=== PATIENT | female | born 1995 | race Caucasian/White ===

== ENCOUNTER 2016-12-17 18:04 | Emergency (ER) | payer OTHER ==
[~2016-12-17] VITALS: Ht 157.5 cm; Wt 47.9 kg
[~2016-12-17 18:04] MED LIST: ALLEGRA-D 121 TABLET PO; AUGMENTIN875 MG PO; BENTYL10 MG PO; COLACE100 MG PO; ERYTHROMYC1 APPLICAT BOTH EYES; GARAMYCIN5 M1 BOTH EYES; HYDROXYZINE HCL10 MG PO; PHENERGAN-CODE120 ML PO; VICOPROFEN1 TABLET PO
[2016-12-17 18:28] LABS: HEMATOCRIT 35.4 % (36.0-46.0); MCH 27.8 PG (29.0-34.0); MCHC 33.3 G/DL (30.0-36.0); MCV 83.3 FL (83-99); MEAN PLAT.VOLUME 10.2 uM^3 (9.5-12.4); PLATELET COUNT 353 K/uL (156-360); RBC DIS.WIDTH-CV 13.2 % (11.8-14.6); RBC DIS.WIDTH-SD 39.3 % (39-53); RED BLOOD COUNT 4.25 M/uL (3.80-5.20); WHITE BLOOD COUNT 7.2 K/uL (4.1-10.2)
[2016-12-17 18:41] LABS: CHLORIDE 105 mEq/L (99-109); POTASSIUM 3.6 mEq/L (3.7-5.4); SODIUM 141 mEq/L (136-147)
[2016-12-17 18:44] LABS: GLUCOSE 99 mg/dL (70-99)
[2016-12-17 18:45] LABS: ANION GAP 9 MEQ/L (2-14); TOTAL BILIRUBIN 0.7 mg/dL (0.0-1.0)
[2016-12-17 18:47] LABS: ALKALINE PHOSPHATASE 55 IU/L (3-129); GFR ESTIMATE (CALCULATED) > 59 mL/min/
[2016-12-17 18:48] LABS: UREA NITROGEN (BUN) 14 mg/dL (9-23)
[2016-12-17 18:56] LABS: QUANTITATIVE HCG < 4.0 MIU/ML
[2016-12-17 18:58] LABS: LIPASE 15 U/L (1.0-51.0)
[2016-12-17 19:30] LABS: ADD MIUA? YES; BILIRUBIN NEGATIVE; BLOOD NEGATIVE; COLOR YELLOW ((YELLOW)); GLUCOSE (STRIP) NEGATIVE; KETONES NEGATIVE; LEUKOCYTES TRACE; NITRITE NEGATIVE; PROTEIN (STRIP) 100; SPECIFIC GRAVITY 1.031 (1.000-1.030)
[2016-12-17 19:46] LABS: BACTERIA RARE /HPF; EPITHELIAL CELLS 4+ /HPF; HYALINE CASTS 0-5 /LPF; MUCUS 4+ /LPF; RED BLOOD CELLS 0-5 /HPF (0-5); UCUL ADDED? NO; UNCLASSIFIED CASTS 0-5 /LPF
[2016-12-17] MEDS ORDERED: ZOFRAN ODT4 MG PO (20:20)
[2016-12-17] MEDS ORDERED: BENTYL20 MG PO (20:20)
[2016-12-17] MEDS ORDERED: MACROBID100 MG PO (20:24)
[2016-12-17 21:00] VITALS: BP 110/64
== END 2016-12-17 21:02 | disposition home or self-care (01) ==
LOC: EME 18:04
DX: N39.0 Urinary tract infection, site not specified (principal); R11.0 Nausea; R10.12 Left upper quadrant pain; G89.29 Other chronic pain
CPT/HCPCS: 74020; 80053; 81003; 83690; 84702; 85027; 99281; 99284